=== PATIENT | female | born 1940 | race Caucasian/White ===

== ENCOUNTER 2018-08-09 06:20 | Day surgery (SDC) | payer MEDICARE ==
[2018-08-06 11:43] LABS: BASOPHILS % (AUTO) 0.6 % (0.0-5.0); EOSINOPHILS % (AUTO) 3.5 % (0.0-8.0); HEMATOCRIT 34.6 % (36-48); MEAN CORPUSCULAR HEMOGLOBIN 30.7 pg (27.0-33.0); MEAN CORPUSCULAR HGB CONC 33.6 g/dL (32.0-36.0); MEAN CORPUSCULAR VOLUME 91.4 fL (79-99); MONOCYTES % (AUTO) 9.4 % (3.0-13.0); NEUTROPHILS % (AUTO) 55.5 % (40.0-77.0); PLATELET COUNT (AUTO) 313 K/uL (130-400); RED BLOOD CELL COUNT(AUTO) 3.78 MIL/uL (4.00-5.50); RED CELL DISTRIBUTION WIDTH 14.2 % (11.0-15.5); WHITE BLOOD COUNT (AUTO) 7.5 K/uL (4.8-10.8)
[2018-08-06 11:44] LABS: APPEARANCE,URINE Clear (CLEAR); BILIRUBIN,URINE Negative (NEGATIVE); COLOR,URINE Yellow (YELLOW); GLUCOSE, URINE (UA) Negative (NEGATIVE); KETONES,URINE Negative (NEGATIVE); LEUKOCYTE ESTERASE ,URINE Small (NEGATIVE); NITRATE,URINE Negative (NEGATIVE); OCCULT BLOOD,URINE Negative (NEGATIVE); PROTEIN,URINE Negative (NEGATIVE)
[2018-08-06 11:45] LABS: CREATININE 0.6 mg/dL (0.5-1.5); POTASSIUM 4.9 mmol/L (3.5-5.1)
[2018-08-06 11:46] VITALS: BP 140/62
[2018-08-06 12:04] LABS: INR 0.94 (0.85-1.15); PARTIAL THROMBOPLASTIN TIME 30.6 SEC (26.3-35.5); PROTHROMBIN TIME 9.9 SEC (9.6-11.6)
[2018-08-06 12:04] LABS: BACTERIA,URINE Rare /HPF (None Seen); RBC,URINE None Seen /HPF (0-1); SQUAMOUS EPITHELIAL CELL,UR Rare /HPF (0-2); WBC,URINE 0-1 /HPF (0-1)
[~2018-08-09] VITALS: Ht 165.1 cm; Wt 68.2 kg
[2018-08-09] VITALS (11 sets, daily range): BP systolic 83–149; BP diastolic 46–59
[~2018-08-09 06:20] MED LIST: ALBU8.5H8 IH; ASPI-1181 PO; FERR-82 PO; ISOS60TA4 PO; LEVO125T11 PO; METO-409 PO; MONT10TA24 PO; MULT1TAB66 PO; NITR0.4T50 SL; OMEP40CA37 PO; PHARMACY COMMUNICATION MISC SCH; PRAV40TA3 PO; PRIM50TA29 PO; RALO60TA13 PO; SODIUM CHLORIDE 0.9% 500ML 500 ML IV SCH
[2018-08-09] MEDS ORDERED: SODIUM CHLORIDE 0.9% 1000ML 1,000 ML IV ONE (06:46)
[2018-08-09] MEDS ORDERED: NITROGLYCERIN 5 MG/ML 10 ML VIAL IV ONE (07:53)
[2018-08-09] MEDS ORDERED: IOHEXOL 350 MG/ML 100ML INFUS..BTL IV ONE (07:53)
[2018-08-09] MEDS ORDERED: BIVALIRUDIN 250 MG/VIAL IV ONE (07:53)
[2018-08-09] MEDS ORDERED: IOHEXOL-350 50ML VIAL IV ONE (07:53)
[2018-08-09] MEDS ORDERED: LIDOCAINE HCL 2% 20ML ONE (07:54)
[2018-08-09] MEDS ORDERED: MIDAZOLAM HCL 1 MG/ML 2ML VIAL ONE (08:32)
[2018-08-09] MEDS ORDERED: CLOPIDOGREL BISULFATE 300 MG TAB ONE (09:02)
[2018-08-09] MEDS ORDERED: ASPIRIN 325MG EC TAB 325 MG TABLET.DR PO ONE (09:06)
[2018-08-09] MEDS ORDERED: SODIUM CHLORIDE 0.9% 1000ML 1,000 ML IV SCH (09:36)
[2018-08-09] MEDS ORDERED: NITROGLYCERIN 50 MG/D5% WATER 1 BOT IV PRN (09:45)
[2018-08-09] MEDS ORDERED: ONDANSETRON HCL 4 MG/2 ML VIAL IVP PRN (09:45)
[2018-08-09] MEDS ORDERED: ACETAMINOPHEN-CODEINE 300/30MG TAB PO PRN ×2 (09:45)
[2018-08-09] MEDS ORDERED: ACETAMINOPHEN 325 MG TAB ONE (14:15)
[2018-08-09] MEDS ORDERED: ACETAMINOPHEN 325 MG TAB PO SCH (15:00)
== END 2018-08-09 16:20 | disposition home or self-care (01) ==
LOC: DAH 06:20
PROVIDERS: ATTEND Internal Medicine Cardiovascular Disease
DX: I25.700 Atherosclerosis of coronary artery bypass graft(s), unspecified, with unstable angina pectoris (principal); Q25.1 Coarctation of aorta; Z79.01 Long term (current) use of anticoagulants; Z79.899 Other long term (current) drug therapy; E03.9 Hypothyroidism, unspecified; E78.5 Hyperlipidemia, unspecified; K21.9 Gastro-esophageal reflux disease without esophagitis; Z90.710 Acquired absence of both cervix and uterus; Z98.41 Cataract extraction status, right eye; Z98.42 Cataract extraction status, left eye; Z95.5 Presence of coronary angioplasty implant and graft; R09.89 Other specified symptoms and signs involving the circulatory and respiratory systems; I70.0 Atherosclerosis of aorta; I73.9 Peripheral vascular disease, unspecified
CPT/HCPCS: 36415; 71045; 75625; 80048; 81001; 85025; 85610; 85730; 93005; 93459; A4606; C1760; C1769 ×2; C1874; C1887; C1894; C9600; J0583; J1644; J2250; J3490 ×2; J7030; Q9965 ×2; Q9967 ×2; 99156; 99157